=== PATIENT | female | born 1975 | race Caucasian/White ===

== ENCOUNTER → 2017-04-30 | Outpatient (CLI) | payer BC ==
[~2017-04-30] MED LIST: ACIDOPHILUS LA1 EACH PO; ALBUTEROL2.5 MG/3 M IH; DUONEB 2.5-0.5 M3 ML AEROSOL; LEVAQUIN500 MG PO; MOTRIN600 MG PO; MUCUS ER600 MG PO; MYCOSTATIN 100,60 ML PO; NORVASC10 MG PO; SOLU-MEDRO125 MG/21 IV; SYNTHROID125 MCG PO; TYLENOL REGULA325 MG PO
== END | disposition home or self-care (01) ==
LOC: AMB 13:26
PROC: 0B9G8ZX Drainage of Left Upper Lung Lobe, Via Natural or Artificial Opening Endoscopic, Diagnostic (ICD-10-PCS; principal; 2017-04-30)
DX: J18.9 Pneumonia, unspecified organism (principal); I10 Essential (primary) hypertension; E03.9 Hypothyroidism, unspecified; G47.33 Obstructive sleep apnea (adult) (pediatric); D69.3 Immune thrombocytopenic purpura; E28.2 Polycystic ovarian syndrome
CPT/HCPCS: 71010; 87070; 87116; 87205; 87206; 87278; 88108; J2175; J2250; J2310; J2550; J3010